=== PATIENT | male | born 1960 | race Caucasian/White ===

== ENCOUNTER → 2021-08-08 | Outpatient (CLI) | payer OTHER ==
--- NOTE | 2021-08-08 14:39 | RAD ---
INDICATION: Reason: TESTICULAR SWELLING / Spl. Instructions: / History: COMPARISON: None. TECHNIQUE: Grayscale, color and spectral doppler ultrasound images obtained of the scrotum. FINDINGS: Right Testicle: 47 x 42 x 31 mm. Vascular flow is identified. Left Testicle: 51 x 35 x 30 mm. Vascular flow is identified. Left-sided 6 mm cyst at the left testicle. There is also a 30 mm right epididymal cyst. 108 x 72 x 53 mm extratesticular septated cystic structure on the left there is some debris within. Mixed echogeni city. Tubular ectasia of the rete testes. IMPRESSION: * Vascular flow is identified to the bilateral testicles. * Multiple extratesticular cystic structures are identified with the largest on the left measuring g reater than 10 cm. Could be from a complex cystic lesion or septated hydrocele with a complex fluid c ollection also in differential. There is some internal echoes within which can be from debris. Electronically signed by: Juan Linda MD (08/08/2021 2:37 PM) [id number]
== END ==
LOC: US 13:20
PROVIDERS: ATTEND Family Medicine
DX: N50.89 Other specified disorders of the male genital organs (principal)
CPT/HCPCS: 76870